=== PATIENT | male | born 1985 | race Two or more races ===

== ENCOUNTER 2018-09-01 22:32 | Emergency (ER) | payer OTHER ==
[~2018-09-01] VITALS: Ht 185.4 cm; Wt 104.3 kg
[2018-09-02] MEDS ORDERED: NORFLEX100MG PO (01:49)
[2018-09-02] MEDS ORDERED: PEPCID40 MG PO (01:49)
[2018-09-02] MEDS ORDERED: MOBIC15 MG PO (01:49)
== END 2018-09-02 01:55 | disposition home or self-care (01) ==
LOC: ER 22:32
DX: S39.012A Strain of muscle, fascia and tendon of lower back, initial encounter (principal); X50.0XXA Overexertion from strenuous movement or load, initial encounter; Y93.89 Activity, other specified; Y92.89 Other specified places as the place of occurrence of the external cause; Y99.8 Other external cause status

== ENCOUNTER → 2020-05-03 | Emergency (ER) | payer OTHER ==
[~2020-05-03] VITALS: Ht 188 cm; Wt 104.3 kg
[~2020-05-03] MED LIST: MOBIC15 MG PO; NORFLEX100MG PO; PEPCID40 MG PO
== END | disposition home or self-care (01) ==
LOC: ER 12:56
DX: R42 Dizziness and giddiness (principal); F12.180 Cannabis abuse with cannabis-induced anxiety disorder; T40.7X5A Adverse effect of cannabis (derivatives), initial encounter; Y92.89 Other specified places as the place of occurrence of the external cause

== ENCOUNTER 2020-05-07 12:02 | Emergency (ER) | payer OTHER ==
[~2020-05-07] VITALS: Ht 188 cm; Wt 102.1 kg
== END 2020-05-07 15:53 | disposition home or self-care (01) ==
LOC: ER 12:02
DX: R00.2 Palpitations (principal); F06.4 Anxiety disorder due to known physiological condition; Z20.828 Contact with and (suspected) exposure to other viral communicable diseases

== ENCOUNTER 2021-05-24 14:56 | Emergency (ER) | payer OTHER ==
[~2021-05-24] VITALS: Ht 185.4 cm; Wt 99.8 kg
[2021-05-24] MEDS ORDERED: CAPSAICIN42.5 GM TOP (16:41)
[2021-05-24] MEDS ORDERED: ZOVIRAX800 MG PO (16:41)
== END 2021-05-24 16:46 | disposition home or self-care (01) ==
LOC: ER 14:56
DX: B02.9 Zoster without complications (principal)

== ENCOUNTER 2022-03-30 16:53 | Emergency (ER) | payer OTHER ==
[~2022-03-30] VITALS: Ht 188 cm; Wt 90.7 kg
[~2022-03-30 16:53] MED LIST changes: +CAPSAICIN42.5 GM TOP; +ZOVIRAX800 MG PO
== END 2022-03-30 20:40 | disposition home or self-care (01) ==
LOC: ER 16:53
DX: S99.812A Other specified injuries of left ankle, initial encounter (principal); W18.30XA Fall on same level, unspecified, initial encounter; Y93.67 Activity, basketball; Y92.89 Other specified places as the place of occurrence of the external cause; Y99.9 Unspecified external cause status

== ENCOUNTER 2022-11-06 15:51 | Emergency (ER) | payer OTHER ==
[~2022-11-06] VITALS: Ht 188 cm; Wt 90.7 kg
== END 2022-11-06 18:05 | disposition home or self-care (01) ==
LOC: ER 15:51
DX: R00.2 Palpitations (principal)